=== PATIENT | male | born 1945 | race Caucasian/White ===

== ENCOUNTER → 2024-05-02 07:34 | Outpatient (REF) | payer OTHER, SELFPAY | LOC: RCS 07:34 | PROVIDERS: ATTENDING PHYSICIAN Nurse Practitioner Adult Health; REFERRING PHYSICIAN Internal Medicine Interventional Cardiology | DX: R07.9 Chest pain, unspecified (principal) | CPT/HCPCS: 93017 ==

== ENCOUNTER → 2024-05-03 12:45 | Outpatient (REF) | payer OTHER, SELFPAY | LOC: RCS 12:45 | PROVIDERS: ATTENDING PHYSICIAN Nurse Practitioner Adult Health | DX: R07.9 Chest pain, unspecified (principal) | CPT/HCPCS: 93306; Q9950 ==

== ENCOUNTER 2024-05-23 10:02 | Day surgery (SDC) | payer OTHER, SELFPAY ==
[2024-05-23] VITALS (10 sets, daily range): BP systolic 127–155; BP diastolic 71–113; BMI 40.2
[2024-05-23] MEDS: ASPIR LOW (ENTERIC COATED) 81 MG PO (11:00)
[2024-05-23 15:39] LABS: ACT-LR - POC 277 Seconds (116-155)
[2024-05-23 16:01] LABS: ACT-LR - POC 268 Seconds (116-155)
[2024-05-23] MEDS: NSS 1000 IV (16:22)
--- NOTE | 2024-05-23 17:07 | W.PN.UPDATE ---
Update Note
Progress Note Update
79 yo WM s/p PCI LAD (same day). He feels good, no cp, sob, delmy diet, EKG SR no ST changes, R rad TR band in place. He will be on DAPT ASA/Brilinta (cost will be $47/mo ok with cost). Cardiac rehab c/s. He will continue amlodipine and metoprolol.
Activity restrictions reviewed w pt and at bedside. He will f/u DCA in 2-4 weeks. He is for d/c home after 9pm if rad site stable.
--- NOTE | 2024-05-23 19:11 | ITS.CL.CATH ---
[employer] Supervisor - Catheterization
Cardiac Catheterization
Procedure Report:
LEFT HEART CATH AND CORONARY INTERVENTION
Date of Procedure: May 23, 2024
Referring: Dr. Eric Cook
PROCEDURES:
1. Left heart catheterization with coronary and single-plane left ventriculography
2. Successful stenting of the mid LAD with a 3.5 x 23 mm Xience stent that was postdilated with a 3.75 mm noncompliant balloon at 18 lorraine distally and 20 lorraine proximally
INDICATION: This is a 79-year-old gentleman with recent diagnosis of hypertension and hyperlipidemia. He reports longstanding chest discomfort for the past year with symptoms may be worsening recently. A stress study was notable for the
development of exertional chest tightness and dizziness. ECG changes were noted. He is now referred for coronary angiography.
ACCESS: Right radial artery, 6 [place] sheath
HEMODYNAMICS (mmHg):
AO (s/d, m) : 137/73
LV (s/d) : 138/14
LVEDP : 24
CORONARY FINDINGS
Dominance: Right
LEFT MAIN: Normal
LEFT ANTERIOR DESCENDING: The LAD arises normally from the left main and runs in the anterior interventricular groove. The LAD just beyond the first septal auto striper and first diagonal branch has a 95% focal apple core stenosis with the remainder
of the vessel have only minor irregularities. The first diagonal branch is small.
CIRCUMFLEX: The circumflex is a large giving rise to a very large OM1 that runs in a course typical of a ramus intermedius. Minor irregularities are present. The circumflex terminates in a small OM 2
RIGHT CORONARY: The right coronary artery is a dominant vessel with only minor luminal irregularities over its course. The PDA is patent. The posterolateral branch is a large with minor irregularities
VENTRICULOGRAPHY: Left ventriculography was performed in KIRK projection. The digital single-plane left ventricular ejection fraction is estimated at 65% and no regional wall motion abnormalities are noted
ANGIOPLASTY PROCEDURE DETAIL: Upon review of the diagnostic catheterization films a decision was made to proceed with percutaneous revascularization of the high-grade mid LAD stenosis. A 180 mg loading dose of ticagrelor was administered at the
beginning of the interventional procedure. Intravenous heparin was administered and the ACT was monitored throughout the procedure. The origin of the left main was cannulated with a 6 [place] EBU 3.75 guiding catheter and a short BMW guidewire was
advanced across the mid LAD stenosis. Balloon predilation was performed with a 2.0 mm Euphora balloon. A 3.5 x 23 mm Xience stent was then advanced over the guidewire and position with angiographic and fluoroscopic guidance. The stent was
implanted at nominal pressures then postdilated to high pressures with a 3.75 mm noncompliant balloon to 18 lorraine distally and 20 lorraine in the proximal and midportion of the stented segment
RADIATION SUMMARY: Fluoro Time (min): 9.4, Dose (mGy): 780, DAP (Gy.cm2) : 47.6
CONCLUSIONS
1. Successful stenting of high-grade mid LAD stenosis with a 3.5 x 23 mm Xience stent that was postdilated to high pressures with a 3.75 mm noncompliant balloon between 18 and 20 lorraine
2. Preserved left ventricular function
RECOMMENDATIONS
1. Unerupted dual antiplatelet therapy for 6 to 12 months.
2. Continue risk factor modification with goal blood pressure less than 130/80 and goal LDL cholesterol close to 55 mg/dL
Copy to: Dr. Eric Cook
--- NOTE | 2024-05-23 21:30 | PTCARENOTE ---
Rec'd pt at change of shift on TELE monitor NSR with occasional monomorphic PVC's. VSS. Pt with R radial band taken off before d/c per order. Pt without any bleeding or tenderness. Site ecchymotic. Pt instructed to apply pressure if site start
bleeding and agreed to report any bleeding or site changes to provider after d/c. Pt being d/c to home. at bedside. Pt rec'd and reviewed d/c instructions and verbalized understanding. Aware of activity restrictions. RN removed IV in left
forearm and TELE monitor taken off. Pt escorted down to entrance by staff via wheelchair into car driven by pts spouse. All belongings sent home w/ patient.
[2024-05-24 07:57] LABS: ACT-LR - POC > 397 Seconds (116-155)
== END 2024-05-23 21:35 | disposition home or self-care (01) ==
LOC: CATH 10:02
PROVIDERS: ATTENDING PHYSICIAN Internal Medicine Interventional Cardiology; FAMILY PHYSICIAN Internal Medicine; OTHER PHYSICIAN Internal Medicine Cardiovascular Disease
DX: I25.10 Atherosclerotic heart disease of native coronary artery without angina pectoris (principal); R07.89 Other chest pain; I10 Essential (primary) hypertension; E78.5 Hyperlipidemia, unspecified; Z79.02 Long term (current) use of antithrombotics/antiplatelets; Z79.82 Long term (current) use of aspirin
CPT/HCPCS: 85347; 93005; 93458; C1725; C1769; C1874; C1894; C9600; Q9967

== ENCOUNTER 2024-07-15 08:58 | Outpatient (RCR) | payer OTHER, SELFPAY | END 2024-07-15 23:59 | disposition home or self-care (01) | LOC: CRHB 08:58 | PROVIDERS: ATTENDING PHYSICIAN Internal Medicine Cardiovascular Disease; FAMILY PHYSICIAN Internal Medicine; REFERRING PHYSICIAN Internal Medicine Interventional Cardiology | DX: I25.10 Atherosclerotic heart disease of native coronary artery without angina pectoris (principal); Z95.5 Presence of coronary angioplasty implant and graft | CPT/HCPCS: G0422; G0423 ==

== ENCOUNTER 2024-08-14 08:45 | Outpatient (RCR) | payer OTHER, SELFPAY | END 2024-08-14 23:59 | disposition home or self-care (01) | LOC: CRHB 08:45 | PROVIDERS: ATTENDING PHYSICIAN Internal Medicine Cardiovascular Disease; FAMILY PHYSICIAN Internal Medicine; REFERRING PHYSICIAN Internal Medicine Interventional Cardiology | DX: I25.10 Atherosclerotic heart disease of native coronary artery without angina pectoris (principal); Z95.5 Presence of coronary angioplasty implant and graft | CPT/HCPCS: G0422; G0423 ==

== ENCOUNTER 2024-09-13 08:42 | Outpatient (RCR) | payer OTHER, SELFPAY | END 2024-09-13 23:59 | disposition home or self-care (01) | LOC: CRHB 08:42 | PROVIDERS: ATTENDING PHYSICIAN Internal Medicine Cardiovascular Disease; FAMILY PHYSICIAN Internal Medicine; REFERRING PHYSICIAN Internal Medicine Interventional Cardiology | DX: Z95.5 Presence of coronary angioplasty implant and graft (principal) | CPT/HCPCS: G0422; G0423 ==

== ENCOUNTER 2024-09-27 07:19 | Outpatient (RCR) | payer OTHER, SELFPAY | END 2024-09-27 23:59 | disposition home or self-care (01) | LOC: CRHB 07:19 | PROVIDERS: ATTENDING PHYSICIAN Internal Medicine Cardiovascular Disease; FAMILY PHYSICIAN Internal Medicine; REFERRING PHYSICIAN Internal Medicine Interventional Cardiology | DX: Z95.5 Presence of coronary angioplasty implant and graft (principal) | CPT/HCPCS: G0422; G0423 ==